=== PATIENT | male | born 1970 | race Caucasian/White ===

== ENCOUNTER 2021-01-23 09:47 | Emergency (ER) | payer MEDICAID ==
--- NOTE | 2021-01-23 10:56 | EDM.PDOC ---
ED HPI GENERAL MEDICAL PROBLEM - General Chief Complaint: Upper Extremity Injury/Pain Stated Complaint: LT ARM PAIN Time Seen by Provider: 01/23/21 10:56 - History of Present Illness INITIAL COMMENTS - FREE TEXT/NARRATIVE: 50-year-old male presents to the emergency room with left arm pain. Patient states for the last week or so he has had left arm pain seems to be worse just above the elbow. But it involves all the way from his shoulder into his hand. This is not associated with any breathing difficulties or shortness of breath. He has not had any nausea or vomiting. The patient's been more active as he has recently started a new job a lot more with his upper extremities. No prior history of carpal tunnel. He has had problems with the shoulder in the past if he slept on it wrong. 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 [No Known Home Meds] 01/23/21 [History] Past Medical History HEENT History: Reports: None Cardiovascular History: Reports: Hypertension Respiratory History: Reports: None Gastrointestinal History: Reports: None Genitourinary History: Reports: None Musculoskeletal History: Reports: None Neurological History: Reports: TIA Psychiatric History: Reports: Addiction Endocrine/Metabolic History: Reports: None Hematologic History: Reports: None Immunologic History: Reports: None Oncologic (Cancer) History: Reports: None Dermatologic History: Reports: None - Infectious Disease History Infectious Disease History: Reports: Chicken Pox - Past Surgical History HEENT Surgical History: Reports: Tonsillectomy Cardiovascular Surgical History: Reports: None Respiratory Surgical History: Reports: None GI Surgical History: Reports: None Social & Family History - Family History Family Medical History: No Pertinent Family History - Tobacco Use Tobacco Use Status *Q: Current Every Day Tobacco User Years of Tobacco use: 30 Packs/Tins Daily: 1 - Caffeine Use Caffeine Use: Reports: Coffee, Tea - Recreational Drug Use Recreational Drug Use: No Review of Systems - Review of Systems Review Of Systems: See Below Constitutional: Reports: No Symptoms Respiratory: Reports: No Symptoms Cardiovascular: Reports: No Symptoms GI/Abdominal: Reports: No Symptoms ED EXAM, GENERAL - Physical Exam Exam: See Below Exam Limited By: No Limitations General Appearance: Alert, No Apparent Distress Head: Atraumatic, Normocephalic Neck: Normal Inspection, Supple, Non-Tender, Full Range of Motion Respiratory/Chest: No Respiratory Distress, Lungs Clear, Normal Breath Sounds Cardiovascular: Regular Rate, Rhythm, No Edema, No Murmur Extremities: Other (Tinel's is negative Phalen's is positive in the left hand reverse Phalen's negative no areas of tenderness until we get to the shoulder if the patient holds his arm out with his thumb pointing down holding up against resistance pushing his shoulder down causes significant shoulder pain .) #1 Interpretation EKG Date: 01/23/21 Rhythm: NSR Rate (Beats/Min): 79 [place]: Normal P-Wave: Present QRS: Normal ST-T: Normal QT: Normal Comparison: NA - No Prior EKG EKG Interpretation Comments: Normal EKG Course - Vital Signs Last Recorded V/S: Last Vital Signs Temp 36.4 C 01/23/21 09:56 Pulse 71 01/23/21 10:52 Resp 17 01/23/21 09:56 BP 150/98 H 01/23/21 13:00 Pulse Ox 98 01/23/21 09:56 - Orders/Labs/Meds Labs: Laboratory Tests 01/23/21 01/23/21 Range/Units 11:25 11:25 WBC 7.33 (4.23-9.07) K/mm3 RBC 5.20 (4.63-6.08) M/mm3 Hgb 16.3 (13.7-17.5) gm/dl Hct 47.9 (40.1-51.0) % MCV 92.1 (79.0-92.2) fl MCH 31.3 (25.7-32.2) pg MCHC 34.0 (32.2-35.5) g/dl RDW Std Deviation 43.4 (35.1-43.9) fL Plt Count 235 (163-337) K/mm3 MPV 10.0 (9.4-12.3) fl Neut % (Auto) 58.5 (34.0-67.9) % Lymph % (Auto) 32.5 (21.8-53.1) % [place] % (Auto) 6.0 (5.3-12.2) % Eos % (Auto) 2.3 (0.8-7.0) Baso % (Auto) 0.4 (0.1-1.2) % Neut # (Auto) 4.29 (1.78-5.38) K/mm3 Lymph # (Auto) 2.38 (1.32-3.57) K/mm3 [place] # (Auto) 0.44 (0.30-0.82) K/mm3 Eos # (Auto) 0.17 (0.04-0.54) K/mm3 Baso # (Auto) 0.03 (0.01-0.08) K/mm3 Sodium 141 (136-145) mEq/L Potassium 4.2 (3.5-5.1) mEq/L Chloride 105 (98-107) mEq/L Carbon Dioxide 24 (21-32) mEq/L Anion Gap 16.2 H (5-15) BUN 8 (7-18) mg/dL Creatinine 1.1 (0.7-1.3) mg/dL Est Cr Clr Drug Dosing 94.45 mL/min Estimated GFR (MDRD) > 60 (>60) mL/min BUN/Creatinine Ratio 7.3 L (14-18) Glucose 111 H (70-99) mg/dL Calcium 9.0 (8.5-10.1) mg/dL Total Bilirubin 0.6 (0.2-1.0) mg/dL AST 22 (15-37) U/L ALT 34 (16-63) U/L Alkaline Phosphatase 70 (46-116) U/L Troponin I < 0.017 (0.00-0.056) ng/mL Total Protein 7.3 (6.4-8.2) g/dl Albumin 3.8 (3.4-5.0) g/dl Globulin 3.5 gm/dL Albumin/Globulin Ratio 1.1 (1-2) - Re-Assessments/Exams Free Text/Narrative Re-Assessment/Exam: 01/23/21 11:18 Patient has a normal-looking EKG. We will go ahead and check labs risk factors for coronary artery disease include male he is a smoker no known risk factors but he is hypertensive here in the emergency room. 01/23/21 12:39 X-ray of the shoulder looks good no acute changes. Laboratory evaluation included negative troponin have been reviewed he should increase his water intake I did discuss this with him. Departure - Departure Time of Disposition: 12:40 Disposition: Home, Self-Care 01 Clinical Impression: Shoulder pain - Discharge Information Referrals: PCP,None [Primary Care Provider] - Misael Barbour MD [Physician] - Forms: ED Department Discharge Additional Instructions: Return to the emergency room with any questions problems or worsening symptoms. Increase your fluid intake. Try and find an [id number] wrist splint its job is to hold your hand straight at night. In case you have carpal tunnel this can help quite a bit with your discomfort. Tylenol as needed for discomfort. Call the hospital clinic [phone] and schedule follow-up to have your blood pressure rechecked. Sepsis Event Note (ED) - Evaluation Sepsis Screening Result: No Definite Risk - Focused Exam Vital Signs: Vital Signs Temp Pulse Resp BP Pulse Ox 01/23/21 13:00 150/98 H 01/23/21 10:52 71 164/91 H 01/23/21 10:14 149/106 H 01/23/21 09:56 36.4 C 86 17 172/115 H 98
--- NOTE | 2021-01-23 12:54 | CR ---
Left shoulder: 3 views of the left shoulder were obtained. Comparison: No previous studies are available. Glenohumeral joint appears within normal limits. Acromioclavicular joint shows minimal degenerative change with slight spurring. No acute fracture, dislocation or other bony abnormality is appreciated. Impression: 1. Minimal degenerative change within the acromioclavicular joint. 2. Left shoulder study is otherwise unremarkable. Diagnostic code #2
== END 2021-01-23 13:00 | disposition home or self-care (01) ==
LOC: JD.ED 09:47
DX: M25.512 Pain in left shoulder (principal); I10 Essential (primary) hypertension; Z72.0 Tobacco use; Z88.0 Allergy status to penicillin
CPT/HCPCS: 36415; 73030-26-LT; 73030-LT; 80053; 84484; 85025; 93005; 93010; 99283; 99284-25